=== PATIENT | female | born 1960 | race African-American/Black ===

== ENCOUNTER → 2016-12-21 13:26 | Emergency (ER) | payer SELFPAY ==
[~2016-12-21 13:26] MED LIST: Polymyx/Trimethoprim OPTH* 10 ML BTL BOTH EYES ONE
[2016-12-21 13:30] VITALS: BP 123/71
--- NOTE | 2016-12-21 14:35 | ED ---
Throat Pain/Nasal Congestion - HPI Summary HPI Summary: 56F presents with pain in right hand for two weeks and eye discharge for 2 days. She has PMH of arthritis in that hand. She has been taking Tylenol without relief. She denies any injury to the area. she states pain has over the MCP joints of 2-4th digit of right hand. She is right handed. She also complains of discharge from right eye that moved to left eye today. She has been washing her hands in between touching her eyes. She denies any change in vision. She admits to itchy eyes. She is also complaining of sore throat. She does not wear contacts but she does wear glasses. She denies any one else having similar symptoms. She denies any foreign body sensation. - History of Current Complaint Chief Complaint: EDEyeProblem Time Seen by Provider: 12/21/16 14:07 - Allergies/Home Medications Allergies/Adverse Reactions: Allergies Allergy/AdvReac Type Severity Reaction Status Date / Time No Known Allergies Allergy Verified 07/17/12 07:42 PMH/Surg Hx/FS Hx/Imm Hx Cardiovascular History: Reports: Hx Hypertension Denies: Hx Pacemaker/ICD Musculoskeletal History: Denies: Hx Rheumatoid Arthritis, Hx Osteoporosis Sensory History: Denies: Hx Hearing Aid Psychiatric History: Denies: Hx Panic Disorder - Surgical History Surgery Procedure, Year, and Place: HERNIA, LEFT KNEE Infectious Disease History: Denies: Traveled Outside the [place] in Last 30 Days - Family History Known Family History: Positive: Cardiac Disease - Social History Alcohol Use: None Substance Use Type: Reports: None Smoking Status (MU): Never Smoked Tobacco Review of Systems Negative: Fever Positive: Drainage, Erythema Positive: Sore Throat Negative: Chest Pain Negative: Shortness Of Breath Positive: Myalgia - right hand pain All Other Systems Reviewed And Are Negative: Yes Physical Exam Triage Information Reviewed: Yes Vital Signs On Initial Exam: Initial Vitals Temp Pulse Resp BP Pulse Ox 98.2 F 64 18 123/71 100 12/21/16 13:27 12/21/16 13:27 12/21/16 13:27 12/21/16 13:27 12/21/16 13:27 Vital Signs Reviewed: Yes Appearance: Positive: Well-Appearing Skin: Positive: Warm, Dry Head/Face: Positive: Normal Head/Face Inspection Eyes: Positive: EOMI, AISHWARYA, Conjunctiva Inflammed, Other: - drainage from left eye seen ENT: Positive: Normal ENT inspection, Pharynx normal, TMs normal. Negative: Tonsillar swelling, Tonsillar exudate Respiratory/Lung Sounds: Positive: Clear to Auscultation, Breath Sounds Present Cardiovascular: Positive: Normal, RRR Musculoskeletal: Positive: Strength/ROM Intact - of right hand, Other - good pulses, capillary refill < 2 secs, tenderness over MCP joints of 2-4th digits of right hand with nodules noted there Diagnostics - Vital Signs Vital Signs Temp Pulse Resp BP Pulse Ox 12/21/16 13:27 98.2 F 64 18 123/71 100 - Laboratory Lab Statement: Any lab studies that have been ordered have been reviewed, and results considered in the medical decision making process. EENT Course/Dx - Course Course Of Treatment: 56F presents with right hand pain that is acute on chronic no trauma and tender over arthritis nodules on right hand. told to try ibuprofen for pain. also has eye drainage from right eye that became drainage from left eye today. on exam conjuncitiva injected with watery discharge left eye. conjuncitivitis may be viral in nature but will treat as bacterial. patient understands and agrees with plan - Differential Diagnoses Differential Diagnoses: Allergic Rhinitis, Conjunctivitis, URI/Bronchitis, Other - arthritis - Diagnoses Provider Diagnoses: Conjunctivitis, Right hand pain Discharge - Discharge Plan Condition: Good Disposition: HOME Patient Education Materials: Arthritis (ED), Conjunctivitis (ED) Referrals: Nasra Robledo MD [Primary Care Provider] - Additional Instructions: Take ibuprofen or Tylenol for pain every 6 hours Move fingers throughout day Place 1 drop in eye four times a day for 7 days Wash hands after touching eye Follow up with primary if no improvement Return to ED if develop any new or worsening symptoms
== END | disposition home or self-care (01) ==
LOC: ED 13:26
DX: H10.9 Unspecified conjunctivitis (principal); M79.641 Pain in right hand; I10 Essential (primary) hypertension
CPT/HCPCS: 99281

== ENCOUNTER 2017-07-10 23:35 | Emergency (ER) | payer SELFPAY ==
[2017-07-11 05:15] VITALS: BP 157/77
--- NOTE | 2017-07-11 08:00 | RAD ---
INDICATION: Left rib injury COMPARISON: None TECHNIQUE: Multiple views of the ribs were obtained. FINDINGS: Bones: There is no evidence of acute rib fracture. LUNGS: The lungs are clear. There is no pneumothorax. Pleural spaces: There is no evidence of hemothorax. Other: None IMPRESSION: NO ACUTE RIB FRACTURE.
--- NOTE | 2017-07-19 02:30 | ED ---
Karen Chavez Emily, scribed for Ramiro Hutchinson MD on 07/11/17 at 0408 . Complex/Multi-Sys Presentation - HPI Summary HPI Summary: This patient is a 56 year old F presenting to [facility] with a chief complaint of L rib pain that began at 23:30 yesterday. Pt fell from a standing position and landed on her L ribs. The patient rates the pain 5/10 in severity. Symptoms aggravated by movement. Symptoms alleviated by nothing. Patient denies abd pain. Patients medications reviewed this visit. - History Of Current Complaint Chief Complaint: EDGeneral Hx Obtained From: Patient Onset/Duration: Sudden Onset, Lasting Hours, Still Present Timing: Constant Severity Currently: Moderate Severity Initially: Moderate Associated Signs And Symptoms: Negative: Abdominal Pain - Allergies/Home Medications Allergies/Adverse Reactions: Allergies Allergy/AdvReac Type Severity Reaction Status Date / Time No Known Allergies Allergy Verified 07/17/12 07:42 PMH/Surg Hx/FS Hx/Imm Hx Previously Healthy: No Cardiovascular History: Reports: Hx Hypertension Denies: Hx Pacemaker/ICD Musculoskeletal History: Denies: Hx Rheumatoid Arthritis, Hx Osteoporosis Sensory History: Denies: Hx Hearing Aid Psychiatric History: Reports: Other Psychiatric Issues/Disorders - Claustrophobia Denies: Hx Panic Disorder - Surgical History Surgery Procedure, Year, and Place: HERNIA, LEFT KNEE Infectious Disease History: No Infectious Disease History: Denies: Traveled Outside the [place] in Last 30 Days - Family History Known Family History: Positive: Cardiac Disease - Social History Occupation: Employed Full-time Lives: With Family Alcohol Use: Occasionally Substance Use Type: Reports: None Smoking Status (MU): Never Smoked Tobacco Review of Systems Negative: Abdominal Pain Positive: Other - Positive L rib pain All Other Systems Reviewed And Are Negative: Yes Physical Exam - Summary Physical Exam Summary: Appearance: Well-appearing, Well-nourished Skin: Warm, Dry, No rash Eyes: Normal, PERRL, EOMI, sclera anicteric ENT: Normal Neck: Supple, nontender Respiratory: Few rales at L base Cardiovascular: S1, S2, no murmur, no rub, no gallop Abdomen: Soft, nontender, no organomegaly Bowel sounds: Present Musculoskeletal: Normal, Strength/ROM Intact, no edema, pulses symmetrical Neurological: Normal, A&Ox3, cranial nerves 2-12 wnl, follows commands, gait not tested, sensation intact to pin and light touch Psychiatric: affect normal, behavior appropriate, dressed appropriately, judgment intact Triage Information Reviewed: Yes Vital Signs On Initial Exam: Initial Vitals Temp Pulse Resp BP Pulse Ox 99.6 F 65 18 137/76 100 07/10/17 23:39 07/10/17 23:39 07/10/17 23:39 07/10/17 23:39 07/10/17 23:39 Vital Signs Reviewed: Yes - [place] Coma Scale Coma Scale Total: 15 Diagnostics - Vital Signs Vital Signs Temp Pulse Resp BP Pulse Ox 07/10/17 23:39 99.6 F 65 18 137/76 100 - Laboratory Lab Statement: Any lab studies that have been ordered have been reviewed, and results considered in the medical decision making process. - Radiology L rib XR Radiology Interpretation Completed By: ED Physician - L rib XR read by ED physician reveals no fracture. Complex Multi-Symp Course/Dx Assessment/Plan: This patient is a 56 year old F presenting to [facility] with a chief complaint of L rib pain that began at 23:30 yesterday. Pt fell from a standing position and landed on her L ribs. The patient rates the pain 5/10 in severity. Symptoms aggravated by movement. Symptoms alleviated by nothing. Patient denies abd pain. Patients medications reviewed this visit. PMHx includes HTN, murmur, and claustrophobia. Physical Exam Findings. Few rales at the left base. Medical Decision Making. Left rib fracture read by ED physician reveals no fracture. Impression: Anterior chest wall tenderness and chest trauma. Patient will be discharged with prescription for percocet and follow up from PCP. The patient is agreeable with this plan. - Diagnoses Provider Diagnoses: Chest trauma, Anterior chest wall tenderness Discharge - Discharge Plan Condition: Good Disposition: HOME Patient Education Materials: Blunt Chest Trauma (ED) Referrals: Nasra Robledo MD [Primary Care Provider] - The documentation as recorded by the Karen scott Emily accurately reflects the service I personally performed and the decisions made by me, Ramiro Hutchinson MD.
== END 2017-07-11 04:36 | disposition home or self-care (01) ==
LOC: ED 23:35
DX: S29.9XXA Unspecified injury of thorax, initial encounter (principal); R07.89 Other chest pain; W19.XXXA Unspecified fall, initial encounter; Y93.9 Activity, unspecified; Y92.9 Unspecified place or not applicable
CPT/HCPCS: 99282

== ENCOUNTER 2017-11-15 09:03 | Emergency (ER) | payer OTHER ==
--- NOTE | 2017-11-15 09:45 | ED ---
Cj Chavez Angela, scribed for Luis Whitehead MD on 11/15/17 at 0935 . Throat Pain/Nasal Congestion - HPI Summary HPI Summary: This pt is a 57 y/o female [facility] [place]/o left sided tooth pain. She reports now the left side of her face/jaw is swollen. Her dental pain is aggravated with eating. Pt was told by her dentist she needs to get her molars out due to a limited amount of space in her mouth. She does not have a scheduled appointment with her dentist yet. Pt additionally notes body aches, rhinorrhea. PMHx includes HTN. She is on antihypertensive medications (labetalol), norvasc, altace. She denies taking any anticoagulants. - History of Current Complaint Chief Complaint: EDDentalPain Time Seen by Provider: 11/15/17 09:31 Hx Obtained From: Patient Onset/Duration: Lasting Days, Still Present Severity: Moderate Associated Signs And Symptoms: Positive: Nasal Discharge - and body aches. Negative: Dysphagia, FB Sensation, Drooling, Wheezing, Hoarseness Cough: None Related History: Other (Noted In Comments) - left sided face swelling - Allergies/Home Medications Allergies/Adverse Reactions: Allergies Allergy/AdvReac Type Severity Reaction Status Date / Time No Known Allergies Allergy Verified 11/15/17 09:15 PMH/Surg Hx/FS Hx/Imm Hx Cardiovascular History: Reports: Hx Hypertension Denies: Hx Pacemaker/ICD Musculoskeletal History: Denies: Hx Rheumatoid Arthritis, Hx Osteoporosis Sensory History: Denies: Hx Hearing Aid Psychiatric History: Reports: Other Psychiatric Issues/Disorders - Claustrophobia Denies: Hx Panic Disorder - Surgical History Surgery Procedure, Year, and Place: HERNIA, LEFT KNEE Infectious Disease History: No Infectious Disease History: Denies: Traveled Outside the [place] in Last 30 Days - Family History Known Family History: Positive: Cardiac Disease - Social History Alcohol Use: Occasionally Substance Use Type: Reports: None Smoking Status (MU): Never Smoked Tobacco Review of Systems Negative: Fever, Chills ENT: Other - left sided face swelling Positive: Dental Pain, Nasal Discharge Negative: Chest Pain Negative: Shortness Of Breath Positive: Myalgia Skin: Negative Neurological: Negative All Other Systems Reviewed And Are Negative: Yes Physical Exam - Summary Physical Exam Summary: General: well-appearing, no pain distress Skin: warm, color reflects adequate perfusion, dry Head: normal Eyes: EOMI, AISHWARYA ENT: Positive rhinorrhea. Left cheek swelling. Neck: supple, nontender Respiratory: CTA, breath sounds present Cardiovascular: RRR Abdomen: soft, nontender Bowel: present Musculoskeletal: normal, strength/ROM intact Neurological: normal, sensory/motor intact, A&O x3 Psychological: affect/mood appropriate Triage Information Reviewed: Yes Vital Signs On Initial Exam: Initial Vitals Temp Pulse Resp BP Pulse Ox 98.8 F 63 17 107/68 99 11/15/17 09:10 11/15/17 09:10 11/15/17 09:10 11/15/17 09:10 11/15/17 09:10 Vital Signs Reviewed: Yes Diagnostics - Vital Signs Vital Signs Temp Pulse Resp BP Pulse Ox 11/15/17 09:10 98.8 F 63 17 107/68 99 - Laboratory Lab Statement: Any lab studies that have been ordered have been reviewed, and results considered in the medical decision making process. EENT Course/Dx - Course Course Of Treatment: Medications reviewed. Allergies noted. - Diagnoses Provider Diagnoses: Dental abscess Discharge - Discharge Plan Condition: Stable Disposition: HOME Prescriptions: Amoxicillin/Clavulanate TAB* [Augmentin TAB 875*] 875 mg PO BID #20 tab Patient Education Materials: Dental Abscess (ED) Referrals: Nasra Robledo MD [Primary Care Provider] - Additional Instructions: FOLLOW UP WITH YOUR DOCTOR. RETURN TO THE EMERGENCY DEPARTMENT FOR ANY WORSENING OF YOUR CONDITION OR QUESTIONS OR CONCERNS. The documentation as recorded by the Cj scott Angela accurately reflects the service I personally performed and the decisions made by me, Luis Whitehead MD.
[2017-11-15 09:59] VITALS: BP 110/59
== END 2017-11-15 09:58 | disposition home or self-care (01) ==
LOC: ED 09:03
DX: K04.7 Periapical abscess without sinus (principal); K08.89 Other specified disorders of teeth and supporting structures
CPT/HCPCS: 99282

== ENCOUNTER 2018-07-17 11:00 | Emergency (ER) | payer OTHER ==
--- NOTE | 2018-07-17 12:13 | ED ---
Complex/Multi-Sys Presentation - HPI Summary HPI Summary: A 57 y/o female presents to ED c/o spiting up blood this AM. In the ED room, the patient has a pulse of 63 BPM and O2 saturation of 100%. As per triage, "woke up and spit up blood, "not vomit, liek woke up and spit, and I want to know why", reports cough". According to the patient, she woke up this AM and spit up blood. She could feel it in the back of her throat. She noted the amount of blood seen was about the amount you see when you have a tooth pulled. She denies any fevers or chills, however, has dry cough. She did not that she was in a heated room with no ventilation. She denies any blood thinners. Denies taking any Aspirin or Ibuprofen. Additionally denies any issues with GI tract such as blood in stool. - History Of Current Complaint Chief Complaint: EDGeneral Time Seen by Provider: 07/17/18 11:13 Hx Obtained From: Patient Onset/Duration: Sudden Onset Severity Currently: None Location: Negative Aggravating Factor(s): NOTHING Alleviating Factor(s): NOTHING Associated Signs And Symptoms: Positive: Cough - Dry. Negative: Fever - Allergies/Home Medications Allergies/Adverse Reactions: Allergies Allergy/AdvReac Type Severity Reaction Status Date / Time No Known Allergies Allergy Verified 07/17/18 11:05 Home Medications: Home Medications Amlodipine Besylate [Norvasc 10 mg tab] 10 mg PO DAILY 07/17/18 [History Confirmed 07/17/18] Iron Ps Complex/B12/Folic Acid [Poly-Iron 150 Forte Capsule] 1 cap PO DAILY [History Confirmed 07/17/18] PMH/Surg Hx/FS Hx/Imm Hx Endocrine/Hematology History: Denies: Hx Diabetes Cardiovascular History: Reports: Hx Hypertension Denies: Hx Hypercholesterolemia, Hx Pacemaker/ICD Musculoskeletal History: Denies: Hx Rheumatoid Arthritis, Hx Osteoporosis Sensory History: Denies: Hx Hearing Aid Psychiatric History: Reports: Other Psychiatric Issues/Disorders - Claustrophobia Denies: Hx Panic Disorder - Surgical History Surgery Procedure, Year, and Place: HERNIA, LEFT KNEE Infectious Disease History: No Infectious Disease History: Denies: Traveled Outside the [place] in Last 30 Days - Family History Known Family History: Positive: Cardiac Disease - Social History Alcohol Use: Occasionally Substance Use Type: Reports: None Smoking Status (MU): Never Smoked Tobacco Review of Systems Negative: Fever, Chills Positive: Other - POSITIVE: Spit up blood this AM. Positive: Cough - Dry Positive: Other - NEGATIVE: Melena All Other Systems Reviewed And Are Negative: Yes Physical Exam - Summary Physical Exam Summary: VITAL SIGNS: Reviewed. GENERAL: Patient is a well-developed and nourished female who is lying comfortable in the stretcher. Patient is not in any acute respiratory distress. Normal exam. HEAD AND FACE: No signs of trauma. No ecchymosis, hematomas or skull depressions. No sinus tenderness. EYES: PERRLA, EOMI x 2, No injected conjunctiva, no nystagmus. EARS: Hearing grossly intact. Ear canals and tympanic membranes are within normal limits. MOUTH: Oropharynx within normal limits. NECK: Supple, trachea is midline, no adenopathy, no JVD, no carotid bruit, no c- spine tenderness, neck with full ROM. CHEST: Symmetric, no tenderness at palpation LUNGS: Clear to auscultation bilaterally. No wheezing or crackles. CVS: Regular rate and rhythm, S1 and S2 present, no murmurs or gallops appreciated. ABDOMEN: Soft, non-tender. No signs of distention. No rebound no guarding, and no masses palpated. Bowel sounds are normal. EXTREMITIES: FROM in all major joints, no edema, no cyanosis or clubbing. NEURO: Alert and oriented x 3. No acute neurological deficits. Speech is normal and follows commands. SKIN: Dry and warm Triage Information Reviewed: Yes Vital Signs On Initial Exam: Initial Vitals Temp Pulse Resp BP Pulse Ox 98.8 F 68 16 149/77 97 07/17/18 11:02 07/17/18 11:02 07/17/18 11:02 07/17/18 11:02 07/17/18 11:02 Vital Signs Reviewed: Yes Diagnostics - Vital Signs Vital Signs Temp Pulse Resp BP Pulse Ox 07/17/18 11:02 98.8 F 68 16 149/77 97 - Laboratory Result Diagrams: 07/17/18 11:48 07/17/18 11:48 Lab Statement: Any lab studies that have been ordered have been reviewed, and results considered in the medical decision making process. - Radiology CXR Radiology Interpretation Completed By: Radiologist Summary of Radiographic Findings: Elevated lung volumes suggest potential obstructive lung disease. No mass or acute cardiopulmonary process evident. ED PHYSICIAN REVIEWED THIS RADIOLOGY REPORT. - EKG 1152 Cardiac Rate: NL - [address] Segment: Normal - NO ST ELEVATION Re-Evaluation - Re-Evaluation First Eval Re-Evaluation Time: 14:04 Change: Improved Comment: Patient is feeling much better. Discharge was discussed with patient. Complex Multi-Symp Course/Dx Assessment/Plan: A 57 y/o female presents to ED c/o spitting up blood this AM. In the ED room, the patient has a pulse of 63 BPM and O2 saturation of 100%. As per triage, "woke up and spit up blood, "not vomit, like woke up and spit, and I want to know why", reports cough". According to the patient, she woke up this AM and spit up blood. She could feel it in the back of her throat. She noted the amount of blood seen was about the amount you see when you have a tooth pulled. She denies any fevers or chills, however, has dry cough. She did not that she was in a heated room with no ventilation. She denies any blood thinners. Denies taking any Aspirin or Ibuprofen. Additionally denies any issues with GI tract such as blood in stool. Blood work without a significant abnormality except for slight anemia which is her baseline. Chest x-ray impression: Elevated lung volumes suggests potential obstructive lung disease. No mass or acute cardiopulmonary process evident. Patient remained stable. She did not have any other episodes of coughing up blood. I believe that the symptoms are present secondary to the cough that she was having in the last couple days. Right now the patients cough has resolved and she does have any other complaints. I discussed all the findings and test results with the patient. Patient was instructed to return to the emergency room immediately if any of the symptoms return or worsens. Plan of care was discussed with the patient and understands and agrees. All questions were answered at patient satisfaction. There were no further complaints or concerns. Lung exam before discharge: CTA B/L. Good air exchange. No wheezing or crackles heard. CVS: S1 and S2 present. No murmurs appreciated. Patient is alert and oriented x 3. Patient is hemodynamically stable. Patient will be discharged home with follow up PCP in the next 2-3 days - Diagnoses Provider Diagnoses: Hemoptysis Discharge - Sign-Out/Discharge Documenting (check all that apply): Patient Departure - DISCHARGE - Discharge Plan Condition: Stable Disposition: HOME Patient Education Materials: Hemoptysis (ED) Referrals: Nasra Robledo MD [Primary Care Provider] - 3 Days Additional Instructions: FOLLOW UP WITH YOUR PRIMARY CARE PROVIDER WITHIN ONE WEEK FOR HIGH BLOOD PRESSURE NOTED TODAY. FOLLOW UP WITH PRIMARY CARE PHYSICIAN IN 3 DAYS. RETURN TO ED FOR ANY NEW OR WORSENING SYMPTOMS. - Billing Disposition and Condition Condition: STABLE Disposition: Home - Attestation Statements Document Initiated by Gilbert: Yes Documenting Scribe: Hermilo Jones Provider For Whom Gilbert is Documenting (Include Credential): Unruly Dietz MD Scribe Attestation: Hermilo Chavez, scribed for Unruly Dietz MD on 07/17/18 at 1821. Scribe Documentation Reviewed: Yes Provider Attestation: The documentation as recorded by the Hermilo scott accurately reflects the service I personally performed and the decisions made by me, Unruly Dietz MD
[2018-07-17 12:31] LABS: ABS Basophils 0 10^3/ul (0-0.2); ABS Eosinophils 0.2 10^3/ul (0-0.6); ABS Lymphocytes 1.2 10^3/ul (1.0-4.8); ABS Monocytes 0.3 10^3/ul (0-0.8); ABS Neutrophils 2.5 10^3/ul (1.5-7.7); ABS Nucleated RBC 0 10^3/ul; EGFR Non-African American 76.1 (>60); Eosinophil % 5.8 % (0-6); Hematocrit 33 % (35-47); Hemoglobin 10.6 g/dl (12.0-16.0); Lymphocyte % 27.7 % (25-47); Mean Corpuscular HGB Conc 32 g/dl (31-36); Mean Corpuscular Hemoglobin 23 pg (27-31); Mean Corpuscular Volume 72 fL (80-97); Mean Platelet Volume 8.1 fL (7.4-10.4); Nucleated Red Blood Cells % 0; Platelet Count 199 10^3/ul (150-450); Red Blood Count 4.56 10^6/ul (4.00-5.40); Red Cell Distribution Width 16 % (10.5-15); White Blood Count 4.2 10^3/ul (3.5-10.8)
[2018-07-17 14:13] VITALS: BP 145/78
== END 2018-07-17 14:07 | disposition home or self-care (01) ==
LOC: ED 11:00
DX: R04.2 Hemoptysis (principal)
CPT/HCPCS: 36415; 71046; 80053; 85025; 85610; 85730; 86850; 86900; 86901; 93005; 99282

== ENCOUNTER 2019-10-01 12:28 | Emergency (ER) | payer OTHER ==
--- NOTE | 2019-10-01 12:44 | ED ---
Lower Extremity - HPI Summary HPI Summary: 59 year old female presents to the ED with a chief complaint of right leg swelling and redness starting last night. Patient usually wears compression socks and was wearing a pair last night, except there was a hole on the right sock's calf. Redness and swelling were localized exclusively to the area with the hole. Redness persisted when she took the sock of, swelling has resolved. Wears compression socks for chronic LE edema. History of HTN and anemia. FHx of cancer but not of DVT. - History of Current Complaint Chief Complaint: EDExtremityLower Stated Complaint: RT LEG REDNESS Time Seen by Provider: 10/01/19 12:36 Hx Obtained From: Patient Mechanism Of Injury: Other - Compression sock rip Onset of Pain: Hours Onset/Duration: Hours Severity Initially: Mild Severity Currently: Mild Pain Intensity: 0 Timing: Constant Location: Is Discrete @ - right calf Associated Signs And Symptoms: Positive: Swelling, Redness Able to Bear Weight: Yes - Allergies/Home Medications Allergies/Adverse Reactions: Allergies Allergy/AdvReac Type Severity Reaction Status Date / Time No Known Allergies Allergy Verified 10/01/19 12:33 PMH/Surg Hx/FS Hx/Imm Hx Endocrine/Hematology History: Denies: Hx Diabetes Cardiovascular History: Reports: Hx Hypertension Denies: Hx Deep Vein Thrombosis, Hx Hypercholesterolemia, Hx Pacemaker/ICD Musculoskeletal History: Denies: Hx Rheumatoid Arthritis, Hx Osteoporosis Sensory History: Denies: Hx Hearing Aid Psychiatric History: Reports: Other Psychiatric Issues/Disorders - Claustrophobia Denies: Hx Panic Disorder - Surgical History Surgery Procedure, Year, and Place: HERNIA. LEFT KNEE Infectious Disease History: No Infectious Disease History: Denies: Traveled Outside the [place] in Last 30 Days - Family History Known Family History: Positive: Cardiac Disease, Other - Negative - DVT - Social History Alcohol Use: Occasionally Substance Use Type: Reports: None Smoking Status (MU): Never Smoked Tobacco Review of Systems Negative: Fever Positive: Edema Positive: Other - erythema All Other Systems Reviewed And Are Negative: Yes Physical Exam - Summary Physical Exam Summary: Constitutional: Well-developed, Well-nourished, Alert. (-) Distressed Skin: Warm, Dry, erythema to posterior R calf 2x3 cm HENT: Normocephalic; Atraumatic Eyes: Conjunctiva normal Neck: Musculoskeletal ROM normal neck. (-) JVD, (-) Stridor, (-) Nuchal rigidity Cardio: Rhythm regular, rate normal, Heart sounds normal; Intact distal pulses; Radial pulses are 2+ and symmetric. (-) Murmur Pulmonary/Chest wall: Effort normal. (-) Respiratory distress, (-) Wheezes, (-) Rales Abd: Soft, (-) tenderness, (-) Distension, (-) Guarding, (-) Rebound Musculoskeletal: trace lower extremity edema bilaterally. 2+ DP pulse Neuro: Alert, Oriented x3 Psych: Mood and affect Normal Triage Information Reviewed: Yes Vital Signs On Initial Exam: Initial Vitals Temp Pulse Resp BP Pulse Ox 99.0 F 66 18 156/83 98 10/01/19 12:29 10/01/19 12:29 10/01/19 12:29 10/01/19 12:29 10/01/19 12:29 Vital Signs Reviewed: Yes Procedures - Sedation Patient Received Moderate/Deep Sedation with Procedure: No Diagnostics - Vital Signs Vital Signs Temp Pulse Resp BP Pulse Ox 10/01/19 12:29 99.0 F 66 18 156/83 98 - Laboratory Lab Statement: Any lab studies that have been ordered have been reviewed, and results considered in the medical decision making process. Lower Extremity Course/Dx - Course Course Of Treatment: 59 y/o F w hx BLE edema p/w redness to LLE. - scant erythema and warmth to post L calf in area where her sock had hole. Will treat as cellulitis given persistent redness and warmth. - Diagnoses Provider Diagnoses: Leg swelling, Cellulitis Discharge ED - Sign-Out/Discharge Documenting (check all that apply): Patient Departure - discharge home - Discharge Plan Condition: Stable Disposition: HOME Prescriptions: Cephalexin CAP* [Keflex CAP*] 500 mg PO QID 7 Days #28 cap Patient Education Materials: Cellulitis (ED) Referrals: Nasra Robledo MD [Primary Care Provider] - Additional Instructions: You were seen in the emergency department for lower extremity pain and redness. You have cellulitis. Please take Keflex 4 times a day for week. Return for worsening redness, swelling, fevers or if you're concerned. Please follow up with your primary care doctor in next 2-3 days and return to emergency department for worsening or concerning symptoms. It was a pleasure taking care of you today. - Billing Disposition and Condition Condition: STABLE Disposition: Home - Attestation Statements Document Initiated by Michaelibstevie: Yes Documenting Scribe: Mark Hood Provider For Whom Gilbert is Documenting (Include Credential): Johnson Joaquin MD Scribe Attestation: Mark Chavez, scribed for Johnson Joaquin MD on 10/01/19 at 1334. Scribe Documentation Reviewed: Yes Provider Attestation: The documentation as recorded by the Mark scott accurately reflects the service I personally performed and the decisions made by Johnson parmar MD Status of Scribe Document: Viewed
[2019-10-01 12:52] VITALS: BP 135/73
== END 2019-10-01 12:48 | disposition home or self-care (01) ==
LOC: ED 12:28
DX: L03.115 Cellulitis of right lower limb (principal); R60.0 Localized edema; I10 Essential (primary) hypertension
CPT/HCPCS: 99282